=== PATIENT | female | born 1960 | race Caucasian/White ===

== ENCOUNTER 2019-12-03 09:38 | Outpatient (CLI) | payer BC, SELFPAY ==
--- NOTE | 2019-12-03 09:40 | MM_ITS ---
WS: [id number] BILATERAL DIGITAL SCREENING MAMMOGRAPHY WITH CAD CLINICAL INFORMATION: SCREENING HISTORY: Screening mammogram. No current complaints. COMPARISON: TECHNIQUE: Bilateral CC and MLO views. FINDINGS: Scattered fibroglandular densities bilaterally. No suspicious focal mass, asymmetry, calcifications, or architectural distortion. No evidence of malignancy. MM/[place] [id number] IMPRESSION: BI-RADS: 1-Negative FOLLOW UP: 1 Year Follow-up Recommend return to annual screening mammography.
== END 2019-12-03 09:39 | disposition home or self-care (01) ==
LOC: RADSHAW 09:38
PROVIDERS: PCP Family Medicine; Visit Provider Family Medicine
DX: Z12.31 Encounter for screening mammogram for malignant neoplasm of breast (principal)
CPT/HCPCS: 77067

== ENCOUNTER → 2020-02-18 08:39 | Outpatient (BNVA) | payer BC, SELFPAY | PROVIDERS: PCP Family Medicine; Visit Provider Obstetrics & Gynecology | DX: N95.0 Postmenopausal bleeding (principal); R19.09 Other intra-abdominal and pelvic swelling, mass and lump | CPT/HCPCS: 76830; 88305 ==

== ENCOUNTER 2021-02-02 15:12 | Outpatient (CLI) | payer BC, SELFPAY ==
--- NOTE | 2021-02-02 15:18 | MM_ITS ---
WS: [id number] SCREENING DIGITAL MAMMOGRAM WITH CAD HISTORY: SCREENING COMPARISON: 12/03/2019 and 10/27/2018 Bilateral CC and MLO views submitted. Computer aided detection analyzed. Breast composition: There are scattered areas of fibroglandular density. Asymmetry in the superior LE FT breast measures 10 mm. This is not identified with certainty on the CC projection. Additional view s are recommended. MM/[place] [id number] IMPRESSION: BI-RADS: 0-Incomplete: Need additional imaging evaluation FOLLOW UP: Need Additional Imaging LEFT breast: Spot compression views (MLO). True ML. Ultrasound to follow if abn ormality persists.
== END 2021-02-02 15:13 | disposition home or self-care (01) ==
LOC: RADSHAW 15:17
PROVIDERS: PCP Family Medicine; Visit Provider Family Medicine
DX: Z12.31 Encounter for screening mammogram for malignant neoplasm of breast (principal)
CPT/HCPCS: 77067

== ENCOUNTER 2021-03-02 14:08 | Outpatient (CLI) | payer BC, SELFPAY ==
--- NOTE | 2021-03-02 14:16 | MM_ITS ---
WS: [id number] ADDITIONAL VIEWS LEFT DIGITAL MAMMOGRAM WITH CAD HISTORY: ABNORMAL MAMMO COMPARISON: 02/02/2022, 12/03/2019 and 10/27/2018 Technique: LEFT ML and spot compression LEFT MLO. Breast composition: There are scattered areas of fibroglandular density. Asymmetry noted in the supe rior LEFT breast on the screening mammogram resolves with additional imaging. The parenchymal pattern is now similar to prior studies. No additional imaging necessary. MM/[place] [id number] IMPRESSION: BI-RADS: 2-Benign FOLLOW UP: 1 Year Follow-up
== END 2021-03-02 14:09 | disposition home or self-care (01) ==
PROVIDERS: PCP Family Medicine; Visit Provider Family Medicine
DX: R92.8 Other abnormal and inconclusive findings on diagnostic imaging of breast (principal); N64.89 Other specified disorders of breast
CPT/HCPCS: 77065

== ENCOUNTER 2021-04-30 14:41 | Outpatient (CLI) | payer BC, SELFPAY ==
--- NOTE | 2021-04-30 14:44 | XR_ITS ---
WS: [id number] RIGHT SHOULDER: 3 VIEW(S) TECHNIQUE: Internal and external rotation with Y view. HISTORY: CHRONIC RIGHT SHOULDER PAIN COMPARISON: None available. No fracture or dislocation or soft tissue abnormality. Mild narrowing of the AC joint. Small osteophyte extending inferiorly from the distal clavicle. XR/XR shoulder RT min 2V* [id number] IMPRESSION: Mild AC joint osteoarthritis.
== END 2021-04-30 14:42 | disposition home or self-care (01) ==
PROVIDERS: PCP Family Medicine; Visit Provider Family Medicine
DX: M19.011 Primary osteoarthritis, right shoulder (principal); G89.29 Other chronic pain
CPT/HCPCS: 73030

== ENCOUNTER 2021-07-16 07:35 | Outpatient (CLI) | payer BC, SELFPAY ==
--- NOTE | 2021-07-16 07:45 | MR_ITS ---
WS: [id number] MRI RIGHT SHOULDER NONCONTRAST TECHNIQUE: Sagittal T2, coronal T1, T2 and proton density imaging. Axial gradient PDE imaging. CLINICAL INFORMATION: RIGHT SHOULDER PAIN COMPARISON: None. FINDINGS: Moderate degenerative arthritis at the AC joint with mild edema. Mild downsloping acromion. Slight nesbitt bacromial spurring. Tiny undersurface tear just proximal to the insertion measuring 3 mm. No tendon r etraction. Mild tendinopathy in the infraspinatus. Normal teres minor. Normal subscapularis. Normal b iceps tendon in the bicipital groove. Normal intra-articular biceps tendon. Normal bone marrow signal in the humerus and glenoid. Biceps labral anchor appears intact. MR/MR shoulder RT wo con* [id number] IMPRESSION: 1. Moderate degenerative arthritis AC joint with slight subacromial spurring. 2. Partial undersurface tear distal supraspinatus just proximal to the inserti on. No tendon retraction. 3. Tendinopathy infraspinatus. 4. Rotator cuff is otherwise intact. 5. Normal biceps tendon in the bicipital groove. Intra-articular biceps tendon appears intact.
== END 2021-07-16 07:36 | disposition home or self-care (01) ==
LOC: RAD 07:40
PROVIDERS: PCP Family Medicine; Visit Provider Family Medicine
DX: M25.511 Pain in right shoulder (principal); M19.011 Primary osteoarthritis, right shoulder
CPT/HCPCS: 73221

== ENCOUNTER 2022-04-12 14:58 | Outpatient (CLI) | payer BC, SELFPAY ==
--- NOTE | 2022-04-12 15:08 | MM_ITS ---
WS: [id number] SCREENING DIGITAL TOMOSYNTHESIS MAMMOGRAM WITH CAD HISTORY: SCREENING COMPARISON: 03/02/2021 and 02/02/2021, 12/03/2019 Bilateral CC and MLO with tomosynthesis views submitted. Synthetic mammography reviewed. Computer aid ed detection analyzed. Breast composition: There are scattered areas of fibroglandular density. No suspicious masses, microc alcifications or architectural distortion. MM/[place] [id number] IMPRESSION: BI-RADS: 1-Negative FOLLOW UP: 1 Year Follow-up
== END 2022-04-12 14:59 | disposition home or self-care (01) ==
LOC: RAD 15:00
PROVIDERS: PCP Family Medicine; Visit Provider Family Medicine
DX: Z12.31 Encounter for screening mammogram for malignant neoplasm of breast (principal)
CPT/HCPCS: 77063; 77067

== ENCOUNTER → 2022-09-22 09:09 | Outpatient (BNVA) | payer BC, SELFPAY | PROVIDERS: PCP Family Medicine; Visit Provider Podiatrist Foot & Ankle Surgery | DX: M25.871 Other specified joint disorders, right ankle and foot (principal); M21.611 Bunion of right foot; M21.612 Bunion of left foot; M20.41 Other hammer toe(s) (acquired), right foot | CPT/HCPCS: 73630 ==

== ENCOUNTER 2023-04-20 09:26 | Outpatient (CLI) | payer BC, SELFPAY ==
--- NOTE | 2023-04-20 09:31 | MM_ITS ---
WS: [id number] SCREENING DIGITAL TOMOSYNTHESIS MAMMOGRAM WITH CAD HISTORY: SCREENING COMPARISON: 04/12/2022 and 03/02/2021 and 02/02/2021 Bilateral CC and MLO with tomosynthesis views submitted. Synthetic mammography reviewed. Computer aid ed detection analyzed. Breast composition: There are scattered areas of fibroglandular density. No suspicious masses, microc alcifications or architectural distortion. IMPRESSION: MM/[place] [id number] BI-RADS: 1-Negative FOLLOW UP: 1 Year Follow-up
== END 2023-04-20 09:27 | disposition home or self-care (01) ==
LOC: RAD 09:26
PROVIDERS: PCP Family Medicine; Visit Provider Internal Medicine
DX: Z12.31 Encounter for screening mammogram for malignant neoplasm of breast (principal)
CPT/HCPCS: 77063; 77067

== ENCOUNTER 2024-04-23 13:15 | Outpatient (CLI) | payer BC, SELFPAY ==
--- NOTE | 2024-04-23 | MM_ITS ---
WS: [id number] BILATERAL 3D TOMOSYNTHESIS DIGITAL SCREENING MAMMOGRAPHY WITH CAD CLINICAL INFORMATION: ANNUAL SCREENING HISTORY: Screening mammogram. No current complaints. COMPARISON: 2022 TECHNIQUE: Bilateral CC and MLO views. FINDINGS: Scattered fibroglandular densities bilaterally. No suspicious focal mass, asymmetry, calcifications, or architectural distortion. No evidence of malignancy. Lucent centered calcification RIGHT breast. MM/MM scr BI tomosynthesis [id number] IMPRESSION: DENSITY: There are scattered areas of fibroglandular density. BI-RADS: 2 - Benign. FOLLOW UP: 1 Year Follow-up Recommend return to annual screening mammography.
== END 2024-04-23 13:16 | disposition home or self-care (01) ==
LOC: RAD 13:17
PROVIDERS: PCP Registered Nurse; Visit Provider Family Medicine
DX: Z12.31 Encounter for screening mammogram for malignant neoplasm of breast (principal); R92.323 Mammographic fibroglandular density, bilateral breasts; R92.1 Mammographic calcification found on diagnostic imaging of breast
CPT/HCPCS: 77063; 77067

== ENCOUNTER → 2024-09-25 12:32 | Outpatient (BNVA) | payer BC, SELFPAY | PROVIDERS: PCP Registered Nurse; Visit Provider Nurse Practitioner Women's Health | DX: Z01.419 Encounter for gynecological examination (general) (routine) without abnormal findings (principal) | CPT/HCPCS: 87624 ==

== ENCOUNTER → 2024-10-03 08:46 | Outpatient (BNVA) | payer BC, SELFPAY | PROVIDERS: PCP Registered Nurse; Visit Provider Nurse Practitioner Women's Health | DX: N95.0 Postmenopausal bleeding (principal); N85.00 Endometrial hyperplasia, unspecified; D25.9 Leiomyoma of uterus, unspecified | CPT/HCPCS: 76830 ==

== ENCOUNTER 2024-11-13 07:18 | Day surgery (SDC) | payer BC, SELFPAY ==
--- NOTE | 2024-11-12 22:16 | W.PM.OPSFHP ---
Same Day Surgery H&P Indication for Procedure/HPI DATE OF PROCEDURE: November 12, 2024 CHIEF COMPLAINT/INDICATIONFOR SURGICAL PROCEDURE: postmenopausal bleeding PREOP DIAGNOSIS: postmenopausal bleeding PLANNED PROCEDURE: Operation Date: 11/13/24 09:25 Proposed Procedures p Hysteroscopy w/ Endometrial Sampling 03529 36967 N95.0(Not Applicable) - Wil Mccrary MD s POSSIBLE Endometrial Poylpectomy(Not Applicable) - Wil Mccrary MD 64 y.o. LNMP at age 49 c/o daily spotting x more than one year Medications/Allergies* Home Medications ?Medication ?Instructions ?Recorded ?Confirmed ?Type cholecalciferol (vitamin D3) 1,250 50,000 mcg PO DIRECTED 01/14/20 11/12/24 History mcg (50,000 unit) tablet multivitamin 1 cap PO DAILY 01/14/20 11/12/24 History lisinopril 20 mg tablet 20 mg PO DAILY 02/18/20 11/12/24 History levothyroxine 125 mcg tablet 125 mcg PO DAILY 11/12/24 11/12/24 History Allergies/Adverse Reactions Allergy/AdvReac Type Severity Reaction Status Date / Time omeprazole (From Prilosec) Allergy edmonds-rayo Verified 11/12/24 10:45 syndrome Pertinent History/Comorbid Conditions* Medical History (Updated 01/18/20 @ 14:23 by Jason Kearns MD) Obesity Gastroesophageal reflux Hypothyroidism Surgical History (Updated 09/25/24 @ 16:59 by Sunita Suarez NP) History of hysteroscopy ECC: fragments of benign endometrial polyp H/O: section 1986 1990 Family History (Updated 01/14/20 @ 13:41 by Sujatha Moseley) Colon cancer Family/Other Maternal aunt Hyperlipidemia Mother Breast cancer Sister Hypertension Mother Social History Smoking and tobacco/nicotine status: former use of tobacco/nicotine Alcohol intake: never Substance/Drug Use: never Pertinent Exam Findings alert, oriented x 3, clear to auscultation bilaterally and regular rate & rhythm Pertinent Data Pap 09-25-24 NILM, negative HPV Pelvic sono 10-03-24 uterus 7 x 5 x 3 cm Endometrium 1.2 cm Ovaries not seen Recommendations Surgery/Procedure today Coding Level of Care Code Acute Code for Chg Fwd
[2024-11-13] VITALS (13 sets, daily range): BP systolic 120–146; BP diastolic 67–95; PULSE 59–83; RESP 16–19; TEMP 36.3–36.7; O2SAT 94–97; BMI 32.3
--- NOTE | 2024-11-13 09:02 | ANES.PREANE2 ---
Pre-Anesthetic Assessment Height/Weight: Height 5 ft 6 in Weight 200 lb Temp Pulse Resp BP Pulse Ox O2 Del Method 97.9 F 83 16 146/93 96 Room Air 11/13/24 07:38 11/13/24 07:38 11/13/24 07:38 11/13/24 07:38 11/13/24 07:38 11/13/24 07:40 Preop Diagnosis: postmenopausal bleeding Operation Date: 11/13/24 09:25 Proposed Procedures p Hysteroscopy w/ Endometrial Sampling 80364 11123 N95.0(Not Applicable) - Wil Mccrary MD s POSSIBLE Endometrial Poylpectomy(Not Applicable) - Wil Mccrary MD Was Beta Hannah taken within 24 hours: N/A Was Clonidine taken within 24 hours: N/A Last intake: Intake Last Liquid Date 11/12/24 Last Liquid Time 19:30 Last Solid Date 11/12/24 Last Solid Time 18:00 Social No alcohol and No tobacco Exam alert, oriented x 3, clear to auscultation bilaterally and regular rate & rhythm Airway Submandibular: within normal limits Cervical ROM: within normal limits Mallampati: Class III Dentition: false Anesthetic Plan ASA status: 3 Anesthesia: General Other: No prior issues with anesthesia NPO since yesterday evening History of hypertension on lisinopril. Preop BP 146/93 History of hypothyroidism on Synthroid Patient has Sjogren's disease Patient had an episode of whooping cough in July and states that she had a few episodes where her vocal cords would go shot and she had difficulty breathing and talking. No issues since that time Plan for general anesthesia with LMA Medications/Allergies Home Medications ?Medication ?Instructions ?Recorded ?Confirmed ?Last Taken ?Type cholecalciferol (vitamin D3) 1,250 50,000 mcg PO DIRECTED 01/14/20 11/12/24 11/07/24 History mcg (50,000 unit) tablet multivitamin 1 cap PO DAILY 01/14/20 11/12/24 11/12/24 History lisinopril 20 mg tablet 20 mg PO DAILY 02/18/20 11/12/24 11/12/24 History levothyroxine 125 mcg tablet 125 mcg PO DAILY 11/12/24 11/12/24 11/12/24 History Allergies Allergy/AdvReac Type Severity Reaction Status Date / Time omeprazole (From Prilosec) Allergy edmonds-rayo Verified 11/12/24 10:45 syndrome Current Medications Generic Name Dose Route Start Last Admin Trade Name Freq PRN Reason Stop Dose Admin Sodium Chloride 1,000 mls @ 30 mls/hr 11/13/24 07:30 11/13/24 08:08 Sodium Chloride 0.9% IV 11/14/24 07:29 30 mls/hr .Q24H BRONWYN Administration PFSH Anesthesia Medical History Obesity Gastroesophageal reflux Hypothyroidism Surgical History History of hysteroscopy ECC: fragments of benign endometrial polyp H/O: section 1986 1990 Family History Mother Hyperlipidemia Hypertension Sister Breast cancer Family/Other Colon cancer Maternal aunt Social History Smoking and tobacco/nicotine status: former use of tobacco/nicotine Alcohol intake: never Substance/Drug Use: never
--- NOTE | 2024-11-13 10:43 | W.PM.OPSUD ---
Surgery/Procedure H&P Update DATE OF PROCEDURE: November 13, 2024 DATE H&P PERFORMED: 11/12/24 H&P UPDATE INFORMATION: I have reviewed H&P completed within last 30 days, I have examined patient prior to procedure and No changes to prior documentation PREOP DIAGNOSIS: postmenopausal bleeding PLANNED PROCEDURE: Operation Date: 11/13/24 09:25 Proposed Procedures p Hysteroscopy w/ Endometrial Sampling 21732 22983 N95.0(Not Applicable) - Wil Mccrary MD s POSSIBLE Endometrial Poylpectomy(Not Applicable) - Wil Mccrary MD
--- NOTE | 2024-11-13 10:45 | PM.OP ---
Operative Report Date of procedure: November 13, 2024 Pre-op diagnosis: abnormal uterine bleeding Post-op diagnosis: same Post-op findings: normal endometrial cavity No polyps / fibroids small amount of endometrial tissue Procedure done: hysteroscopy Curettage of uterus Implants: none Specimens removed/disposition: endometrial curettings Surgeon: Wil Mccrary MD Anesthesia: MAC Estimated blood loss (mL): 0 Complications: none Findings: normal endometrial cavity No polyps / fibroids small amount of endometrial tissue Condition: stable Disposition: PACU Brief History: 64 y.o. with abnormal uterine bleeding Procedure: Informed consent signed. Patient was taken to the operating room. Anesthesia was induced. Patient was placed in dorsolithotomy position, prepped and draped for hysteroscopy. A bivalve speculum was placed in the vagina. The anterior lip of the cervix was grasped with a sharp-toothed tenaculum. The cervix was serially dilated with Hegar dilators. . A hysteroscope was placed into the endometrial cavity. The endometrial cavity was seen to be normal. There were no polyps or fibroids. There was a small amount of endometrial tissue. The hysteroscope was then removed. Endometrial curettage was done with a sharp curette. Endometrial tissue was sent to pathology. The sharp-toothed tenaculum was removed. There was no bleeding from the endometrial cavity or cervix. The patient was then placed supine and awakened and taken to the PACU. Postop condition: stable EBL: none Sponge and instruments counts were normal x 2 Complications: none
[2024-11-13] MEDS: oxyCODONE-APAP 5-325 mg Tablet 1 TAB PO (12:20)
--- NOTE | 2024-11-13 13:12 | ANE.PACU2 ---
Inpatient post-anesthesia follow up: Airway intact: Yes Vital signs: Temperature 98.1 F Pulse Rate 59 Respiratory Rate 16 Blood Pressure 125/95 Pulse Oximetry 97 Oxygen Delivery Me thod Room Air Oxygen Flow Rate Fraction of Inspir ed Oxygen Hydration adequate: Yes Nausea and vomiting: No Pain level: 1 Mental status: Baseline
== END 2024-11-13 13:00 | disposition home or self-care (01) ==
PROVIDERS: Visit Provider Obstetrics & Gynecology
PROC: 0UJD8ZZ Inspection of Uterus and Cervix, Via Natural or Artificial Opening Endoscopic (ICD-10-PCS; CPT 58555; principal; 2024-11-13 09:15)
DX: N93.9 Abnormal uterine and vaginal bleeding, unspecified (principal); I10 Essential (primary) hypertension; E03.9 Hypothyroidism, unspecified; M35.00 Sjogren syndrome, unspecified; K21.9 Gastro-esophageal reflux disease without esophagitis; E66.9 Obesity, unspecified; Z68.32 Body mass index [BMI] 32.0-32.9, adult; Z87.891 Personal history of nicotine dependence
CPT/HCPCS: 58558; 88305; J1100; J1885; J2405; J2704; J3010; J7030; J9999

== ENCOUNTER 2025-04-29 09:19 | Outpatient (CLI) | payer MEDICARE, OTHER, SELFPAY ==
--- NOTE | 2025-04-29 09:28 | MM_ITS ---
WS: [id number] Bilateral screening 3D tomosynthesis digital mammogram, 04/29/2025 9:45 AM Clinical Data: ANNUAL SCREENIGN Comparison: 04/23/2024, 04/20/2023, 04/12/2022, 03/02/2021, 03/05/2021, 12/03/2019, 10/27/2018, 11/27/2015, 10/28/2014, 10/08/2013. Findings: No spiculated masses or clustered calcifications are seen. There are no secondary signs of carcinoma. MM/MM scr BI tomosynthesis [id number] Impression: Negative bilateral mammogram unchanged. Recommend annual screening mammograms. BIRADS: 1 - Negative. FOLLOW UP: 1 Year Follow-up DENSITY: There are scattered areas of fibroglandular density. The CAD [employer] was used
== END 2025-04-29 09:20 | disposition home or self-care (01) ==
LOC: RAD 09:23
PROVIDERS: PCP Family Medicine; Visit Provider Family Medicine
DX: Z12.31 Encounter for screening mammogram for malignant neoplasm of breast (principal); R92.323 Mammographic fibroglandular density, bilateral breasts
CPT/HCPCS: 77063; 77067